=== PATIENT | male | born 1960 | race Caucasian/White ===

== ENCOUNTER → 2018-07-22 | Outpatient (CLI) | payer BC ==
[~2018-07-22] MED LIST: IOHEXOL 240 MG/ML 50ML VIAL. ONE; IOHEXOL 240 MG/ML 50ML VIAL. PO ONE; IOHEXOL 300 MG/ML 75 ML VIAL. IV ONE
--- NOTE | 2018-07-22 13:48 | RAD ---
Examination: CT of the abdomen pelvis with IV contrast HISTORY: History of left inguinal hernia, pain COMPARISON: None available TECHNIQUE: Axial CT images of the abdomen pelvis were performed with oral and IV contrast. Coronal and sagittal reformats are performed. Exposure: One or more of the following individualized dose reduction techniques were utilized for this examination: 1. Automated exposure control 2. Adjustment of the mA and/or kV according to patient size 3. Use of iterative reconstruction technique FINDINGS: The bibasilar lungs are clear. No evidence of free air identified in the abdomen. There is a peripherally enhancing lesion identified in the left lobe of the liver measuring 3.1 x 2.8 cm and a peripherally enhancing lesion identified in the medial aspect of the left lobe of the liver measuring 2.6 x 1.8 cm likely hemangiomas. Smaller cystic structures scattered in the liver probably cysts. The visualized spleen, adrenals grossly appears unremarkable. The stomach is mildly distended. The visualized pancreas grossly appears unremarkable. Bilateral kidneys enhance symmetrically. There is a punctate 4 mm intrarenal collecting system calculus identified in the left kidney. There is a cystic structure identified in the right kidney measuring 5 cm likely cyst. The small bowel is nondilated. Feces and gas noted in the colon. Urinary bladder is mildly distended. Mild thickened appearance of the urinary bladder wall. Small fat-containing left inguinal hernia. Mild aortic atherosclerosis. Mild degenerative changes lumbar spine. IMPRESSION: 1. Small fat-containing left inguinal hernia without evidence of bowel herniation. 2. Peripherally enhancing cystic lesions identified in the left lobe of the liver probably hemangiomas. Smaller hypodensities identified in the liver probably cysts. Nonemergent MRI can be considered. 3. 5 cm right renal cyst. 4 mm calculus left kidney. 4. Mild thickened appearance of the urinary bladder wall could be due to mild distention however underlying cystitis is not completely excluded. Correlate with lab values. Electronically signed by: Philip Navarro MD (07/22/2018 1:43 PM) [id number]
== END | disposition home or self-care (01) ==
LOC: CT 12:28
PROVIDERS: ATTEND Family Medicine
DX: K40.91 Unilateral inguinal hernia, without obstruction or gangrene, recurrent (principal); N20.0 Calculus of kidney; N28.1 Cyst of kidney, acquired; K76.89 Other specified diseases of liver; I70.0 Atherosclerosis of aorta; N32.89 Other specified disorders of bladder
CPT/HCPCS: 74177; Q9966; Q9967